=== PATIENT | male | born 1975 | race Two or more races ===

== ENCOUNTER → 2025-04-05 | Emergency (ER) | payer OTHER ==
[~2025-04-05] VITALS: Ht 175.3 cm; Wt 77.1 kg
[~2025-04-05] MED LIST: 0.9 % SODIUM CHLORIDE 1,000 ML IV SCH; ATORVASTATIN CA10 MG PO; KETOROLAC TROMETHAMINE 60 MG VIAL IM ONE; MORPHINE SULFATE 4 MG/ML CARTRIDGE IV ONE
[2025-04-05 10:52] VITALS: BP 147/89; O2SAT 97
[2025-04-05 14:51] LABS: CALCIUM 9.3 mg/dL (8.5-10.1); CREATININE SERUM 1.2 mg/dL (0.70-1.30); GFR 64.9; POTASSIUM 3.99 mEq/L (3.5-5.1)
== END | disposition home or self-care (01) ==
LOC: ER 10:22
PROVIDERS: Emergency Medicine
DX: M62.830 Muscle spasm of back (principal); M54.50 Low back pain, unspecified